=== PATIENT | female | born 1940 | race Caucasian/White ===

== ENCOUNTER 2023-11-22 19:29 | Emergency (ER) | payer MEDICARE, OTHER ==
[2023-11-22] MEDS: Lidocaine 1% 5 ML VIAL INJECT ONE (21:04)
[2023-11-22] MEDS: Diphtheria,Pertussis(Acell),Tetanus Vaccine 0.5 ML Syringe IM ONE (21:05)
[2023-11-22] MEDS: Bacitracin Oint 1 GM U/D Packet TOP ONE (21:05)
== END 2023-11-22 22:30 | disposition home or self-care (01) ==
LOC: DL.ED 19:29
DX: S61.412A Laceration without foreign body of left hand, initial encounter (principal); Z79.899 Other long term (current) drug therapy; X58.XXXA Exposure to other specified factors, initial encounter
CPT/HCPCS: 12004; 90471; 90715; 99282; A9270; J3490